=== PATIENT | male | born 1940 | race African-American/Black ===

== ENCOUNTER → 2018-03-18 | Outpatient (CLI) | payer MEDICARE ==
--- NOTE | 2018-03-18 20:49 | XCELERA REPORT ---
[address] [address] Transthoracic Echocardiogram Report Name: LAYNE LUCAS JR Age: 77 yrs Gender: Male : 1940 Patient Status: Outpatient Patient Location: [facility] Study Date: 03/18/2018 11:27 AM Height: 71 in Weight: 210 lb BSA: 2.2 m2 Reason For Study: MURMUR Ordering Physician: JENNA HQAUE Performed By: Anette Cavazos Interpretation Summary technically difficult study. limited visualisation of AV configuration .RH poorly imaged, no TR seen to sample to r/o pulm HTN. Limited info. Min post peric. effusion. Mild AV sclerosis, no doppler evidence of , trace AR with no LV enlargement. Mild Mitral annular calcification. No MS, no MVP, trace MR with ? LA enlargement only by M -mode. No LORENA calculated. Poor LV segmental analysis, prob. hypokin IVS and IW. LVEF 60-65%. No LV dilatation. Stage I LV diastolic dysfunction. RH poorly visualised, no TR to derive RVSP, pulm hypertension not ruled out. No doppler evidence of ASD. MMode/2D Measurements & Calculations RVDd: 2.7 cm LVIDd: 4.6 cm FS: 40.7 % Ao root diam: 2.9 cm IVSd: 1.1 cm LVIDs: 2.7 cm EDV(Teich): 97.3 ml LVPWd: 1.1 cm ESV(Teich): 27.7 ml Ao root area: 6.8 cm2 LA dimension: 4.1 cm EF(Teich): 71.6 % Doppler Measurements & Calculations MV E max asya: MV P1/2t max asya: Ao V2 max: AI max asya: 57.8 cm/sec 57.8 cm/sec 133.7 cm/sec 546.8 cm/sec MV A max asya: MV P1/2t: 90.8 msec Ao max P.2 mmHgAI max P.1 cm/sec MVA(P1/2t): 2.4 cm2 119.6 mmHg MV E/A: 0.53 MV dec slope: AI dec slope: 284.8 cm/sec2 186.4 cm/sec2 AI P1/2t: MV dec time: 562.4 msec 0.32 sec LV V1 max PG: PA V2 max: AV P1/2t-pr_phl: MV P1/2t-pr_phl: 5.0 mmHg 72.6 cm/sec 562.4 msec 90.8 msec LV V1 max: PA max P.1 mmHg 112.0 cm/sec Left Ventricle The left ventricle is grossly normal size. There is mild concentric left ventricular hypertrophy. The left ventricular ejection fraction is normal. LV EF is 65%. Doppler measurements suggest impaired left ventricular relaxation, which is associated with grade I/IV or mild diastolic dysfunction. There are regional wall motion abnormalities as specified. There is no thrombus. Right Ventricle The right ventricle is grossly normal size. The right ventricle is not well visualized secondary to technical limitations. Atria Right atrium not well visualized secondary to technical limitations. The left atrium is mildly dilated. There is no Doppler evidence for an interatrial shunt. Mitral Valve There is mild mitral annular calcification. The mitral valve is grossly normal. There is no evidence of mitral valve prolapse. There is no mitral valve stenosis. There is a trace amount of mitral regurgitation. Aortic Valve The aortic valve opens well. The aortic valve is calcified. The aortic valve is trileaflet. Cannot exclude aortic valvular vegetation. There is no aortic valve stenosis. There is a trace amount of aortic regurgitation. PHT 560ms. Tricuspid Valve The tricuspid valve is not well visualized secondary to technical limitations. Great Vessels The aortic root is normal size. 37mm. Effusions Minimal pericardial effusion. I WMSI = 1.38 % Normal = 63 Segments Size X - Cannot 2 - 4 - 1-2 small Interpret 1 - Normal Hypokinetic 3 - AkineticDyskinetic 3-5 moderate 5 - 6-14 large Aneurysmal 15-16 diffuse : JENNA HAQUE > Franky Singh
== END ==
LOC: SP 10:57
PROVIDERS: ATTEND Family Medicine
DX: R01.1 Cardiac murmur, unspecified (principal)
CPT/HCPCS: 93306